=== PATIENT | female | born 1985 | race Caucasian/White ===

== ENCOUNTER 2022-03-25 06:52 | Day surgery (SDC) | payer OTHER ==
[2022-03-23 12:01] VITALS: BMI 40.6
[2022-03-25] MEDS ORDERED: AFRIN NASAL MIST 15 ML BOT ONE ×2 (07:33→08:03)
[2022-03-25] MEDS ORDERED: Midazolam HCl 2 mg/2 ml Vial ONE (07:48)
[2022-03-25] MEDS ORDERED: Lidocaine 1% w/Epinephrine 1:100K 20 ML VIAL ONE (08:03)
[2022-03-25] MEDS ORDERED: Bacitracin Zinc Ointment 30 gm TUBE ONE (08:03)
[2022-03-25] MEDS ORDERED: Dexmedetomidine 200 MCG/2 ML VIAL ONE (08:08)
[2022-03-25] MEDS ORDERED: fentaNYL Citrate/PF 100 MCG/2 ML SYRINGE ONE (08:08)
[2022-03-25] MEDS ORDERED: Ketamine 50 MG/ML (10ML VIAL) ONE (08:08)
[2022-03-25] MEDS ORDERED: methylPREDNISolone Acetate 40 mg/ml Vial ONE (08:11)
[2022-03-25 08:33] LABS: BHCG - Serum Negative (NEGATIVE); Pregs Control Background? CLEAR/WHITE (CLR/WHITE); Pregs Control Bar Appear? YES (CONTROL BAR)
[2022-03-25] MEDS ORDERED: Glycopyrrolate 0.2 MG/ML 5 ML SYRINGE ONE (08:44)
[2022-03-25] MEDS ORDERED: Rocuronium Bromide 10 MG/ML (10ML VIAL) ONE (08:44)
[2022-03-25] MEDS ORDERED: Ondansetron PF 4 MG/2 ML Vial ONE (08:44)
[2022-03-25] MEDS ORDERED: Dexamethasone 20 MG/5 ML VIAL ONE (08:44)
[2022-03-25] MEDS ORDERED: PROPOFOL 200 MG/20 ML VIAL ONE (08:44)
[2022-03-25] MEDS ORDERED: Ferric Subsulfate (ASTRINGYN) 8 GM VIAL ONE (09:02)
[2022-03-25] MEDS ORDERED: Labetalol HCl 100 MG/20 ML VIAL ONE (09:52)
[2022-03-25] MEDS ORDERED: Fentanyl 100 MCG/2 ML VIAL ONE (09:53)
[2022-03-25] MEDS ORDERED: Hydrocodone-Acetamin 15 ML UDCUP ONE (10:49)
== END 2022-03-25 12:22 | disposition home or self-care (01) ==
LOC: SDC 06:52
PROVIDERS: ATTEND Otolaryngology Plastic Surgery within the Head & Neck
PROC: 0CTPXZZ Resection of Tonsils, External Approach (ICD-10-PCS; principal; 2022-03-25)
PROC: 09TV8ZZ Resection of Left Ethmoid Sinus, Via Natural or Artificial Opening Endoscopic (ICD-10-PCS; principal; 2022-03-25)
PROC: 09TL0ZZ Resection of Nasal Turbinate, Open Approach (ICD-10-PCS; principal; 2022-03-25)
PROC: 09TU8ZZ Resection of Right Ethmoid Sinus, Via Natural or Artificial Opening Endoscopic (ICD-10-PCS; principal; 2022-03-25)
PROC: 099R8ZZ Drainage of Left Maxillary Sinus, Via Natural or Artificial Opening Endoscopic (ICD-10-PCS; principal; 2022-03-25)
PROC: 0CTQXZZ Resection of Adenoids, External Approach (ICD-10-PCS; principal; 2022-03-25)
PROC: 09BQ8ZZ Excision of Right Maxillary Sinus, Via Natural or Artificial Opening Endoscopic (ICD-10-PCS; principal; 2022-03-25)
DX: J32.8 Other chronic sinusitis (principal); J33.8 Other polyp of sinus; J34.3 Hypertrophy of nasal turbinates; J35.03 Chronic tonsillitis and adenoiditis; J34.89 Other specified disorders of nose and nasal sinuses; J30.9 Allergic rhinitis, unspecified; J34.2 Deviated nasal septum; E66.01 Morbid (severe) obesity due to excess calories; Z68.41 Body mass index [BMI] 40.0-44.9, adult; Z86.16 Personal history of COVID-19; Z87.891 Personal history of nicotine dependence
CPT/HCPCS: 36415; 84703; 85014; 87070; 87077; 87102; 87186; 87205; 87206; 88304; J1100; J2250; J2405; J2704; J2920; J3010